=== PATIENT | male | born 1970 | race Caucasian/White ===

== ENCOUNTER 2017-07-11 18:52 | Emergency (ER) | payer OTHER ==
[~2017-07-11] VITALS: Ht 182.9 cm; Wt 88.5 kg
--- OUTSIDE RECORDS SUMMARY | 2017-07-11 18:55 | XMS ---
Demographics + + + | Address | [address] | | | [place] [address] | + + + | Preferred Language | Unknown | + + + | Marital Status | Unknown | + + + | Gnosticism Affiliation | Unknown | + + + | Race | Unknown | + + + | Ethnic Group | Unknown | + + + Author + + + | Author | [facility] | + + + | Organization | [facility] | + + + | Address | 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, | Active | [id number] | | | ulcer | | | 2016 | | | | | disease | | | | | | + + + + + + + + ALLERGIES + + + + +--------+ | Substance | Reaction | Event Type | Date | Status | + + + + +--------+ | Hydrocodone-[place] | Skin flaking | Drug Allergy | February, | Active | | taminophen | | | | | + + + + +--------+ SOCIAL HISTORY No smoking Hx information available PLAN OF CARE VITAL SIGNS + + + + | Height | 72 in | 2017-03-13 | + + + + | Weight | 203.4 lbs | 2017-03-13 | + + + + | BMI | 27.58 kg/m2 | 2017-03-13 | + + + + | Temperature | 97.9 degrees Fahrenheit | 2017-03-13 | + + + + | Heart Rate | 97 /min | 2017-03-13 | + + + + | Blood pressure systolic | 127 mm Hg | 2017-03-13 | + + + + | Blood pressure diastolic | 85 mm Hg | 2017-03-13 | + + + + MEDICATIONS + + + + + + + +--------+ | Medicati | Instruct | Dosage | Frequenc | Start | End Date | Duration | Status | | on | ions | | y | Date | | | | + + + + + + + +--------+ | Pepcid | | | | | | | Active | | AC | | | | | | | | + + + + + + + +--------+ | Prilosec | Orally | 1 tab(s) | 24h | 30 Mar, | | 30 | Active | | 40 MG | once a | | | 2015 | | | | | | day | | | | | | | + + + + + + + +--------+ | Carafate | Orally | 1 tablet | 12h | Aug, | 27 Jul, | 30 | Active | | 1 GM | Twice a | on an | | 2015 | 2016 | day(s) | | | | day | empty | | | | | | | | | stomach | | | | | | + + + + + + + +--------+ | Benzonat | Orally | 1 | 8h | Oct, | | 30 | Active | | ate 100 | Three | capsule | | 2016 | | | | | mg | times a | as | | | | | | | | day | needed | | | | | | | | | for the | | | | | | | | | cough | | | | | | + + + + + + + +--------+ RESULTS No Results PROCEDURES + + + + + | Procedure | Date Ordered | Related Diagnosis | Body Site | + + + + + | Est Level III | March 13, 2017 | | | | Intermediate | | | | + + + + + IMMUNIZATIONS No Known Immunizations"
--- OUTSIDE RECORDS SUMMARY | 2017-07-11 18:55 | XMS ---
Demographics + + + | Address | [address] | | | [place] [address] | + + + | Preferred Language | Unknown | + + + | Marital Status | Unknown | + + + | Worship Affiliation | Unknown | + + + | Race | Unknown | + + + | Ethnic Group | Unknown | + + + Author + + + | Author | [facility] | + + + | Organization | [facility] | + + + | Address | [address] | | | [place] [address] | + + + | Phone | | + + + Care Team Providers + + + + | Care Linux Solaris Administrator Name | Role | Phone | + + + + Unavailable | Unavailable | + + + + PROBLEMS Unknown Problems ALLERGIES Unknown Allergies SOCIAL HISTORY No smoking Hx information available PLAN OF CARE VITAL SIGNS MEDICATIONS Unknown Medications RESULTS No Results PROCEDURES No Known procedures IMMUNIZATIONS No Known Immunizations"
--- OUTSIDE RECORDS SUMMARY | 2017-07-11 18:55 | XMS ---
Demographics + + + | Address | [address] | | | [place] [address] | + + + | Preferred Language | Unknown | + + + | Marital Status | Unknown | + + + | Jehovah'S Witness Affiliation | Unknown | + + + | Race | Unknown | + + + | Ethnic Group | Unknown | + + + Author + + + | Author | [facility] | + + + | Organization | [facility] | + + + | Address | [address] | | | [place] [address] | + + + | Phone | | + + + Care Team Providers + + + + | Care Leather Fitter Name | Role | Phone | + + + + Unavailable | Unavailable | + + + + PROBLEMS Unknown Problems ALLERGIES + + + + +--------+ | Substance | Reaction | Event Type | Date | Status | + + + + +--------+ | Hydrocodone-[place] | Skin flaking | Drug Allergy | Apr, | Active | | taminophen | | | | | + + + + +--------+ SOCIAL HISTORY No smoking Hx information available PLAN OF CARE + +---------+ | Activity | Details | + +---------+ +---+ | | +---+ + + + | Follow Up | f/u with PCP Reason:null | + + + | Pending Test | H. pylori Breath Test | + + + VITAL SIGNS + + + + | Height | 72 in | 2017-05-19 | + + + + | Weight | 195.1 lbs | 2017-05-19 | + + + + | BMI | 26.46 kg/m2 | 2017-05-19 | + + + + | Temperature | 98.1 degrees Fahrenheit | 2017-05-19 | + + + + | Heart Rate | 90 /min | 2017-05-19 | + + + + | Blood pressure systolic | 131 mm Hg | 2017-05-19 | + + + + | Blood pressure diastolic | 90 mm Hg | 2017-05-19 | + + + + MEDICATIONS + + + + + + + +--------+ | Medicati | Instruct | Dosage | Frequenc | Start | End Date | Duration | Status | | on | ions | | y | Date | | | | + + + + + + + +--------+ | Tylenol/ | Orally | 1 tablet | 6h | Apr, | Apr, | 3 days | Active | | Codeine | every 6 | | | 2016 | 2016 | | | | #4 | hrs | | | | | | | | 300-60 | | | | | | | | | MG | | | | | | | [...] MG | once a | | | 2016 | | | | | | day | | | | | | | + + + + + + + +--------+ | Benzonat | Orally | 1 | 8h | 10 Oct, | | 30 | Active | [...] + + + + + +--------+ | Bactrim | Orally | 1 tablet | 12h | 24 Lemuel, | 3 Aug, | 10 | Active | | DS | Twice a | | | 2016 | 2016 | day(s) | | | 800-160 | day | | | | | | | | MG | | | | | | | | + + + + + + + +--------+ RESULTS No Results PROCEDURES + + + + + | Procedure | Date Ordered | Related Diagnosis | Body Site | + + + + + | Est Level III | May 19, 2017 | | | | Intermediate | | | | + + + + + IMMUNIZATIONS No Known Immunizations"
[2017-07-11] MEDS ORDERED: CARAFATE1 GM PO (19:07)
[2017-07-11] MEDS ORDERED: OMEPRAZOLE40 MG PO (19:07)
[2017-07-11] MEDS ORDERED: CEPHALEXIN500 MG PO (20:16)
== END 2017-07-11 20:35 | disposition home or self-care (01) ==
LOC: ED 18:52
DX: L40.9 Psoriasis, unspecified (principal); I10 Essential (primary) hypertension; Z79.899 Other long term (current) drug therapy
CPT/HCPCS: 99283